=== PATIENT | female | born 1955 | race Caucasian/White ===

== ENCOUNTER → 2018-11-22 | Outpatient (CLI) | payer BC ==
--- NOTE | 2018-11-25 14:12 | RAD ---
DATE: 11/22/2018 EXAM: MAMMO XOCHITL SCREENING BILATERAL HISTORY: Annual screening COMPARISON: None. This is the baseline exam. This study was interpreted with the benefit of Computerized Aided Detection (CAD). Breast Density: HETERO The breast parenchyma is heterogenously dense, which could reduce sensitivity of mammography. Breast parenchyma level C. FINDINGS: Benign calcifications are present. No dominant mass or distortion. No suspicious calcifications. IMPRESSION: Benign findings. BI-RADS CATEGORY: 1 NEGATIVE RECOMMENDED FOLLOW-UP: 12M 12 MONTH FOLLOW-UP PQRS compliance statement: Patient information was entered into a reminder system with a target due date in one year for the next mammogram. Mammography is a sensitive method for finding small breast cancers, but it does not detect them all and is not a substitute for careful clinical examination. A negative mammogram does not negate a clinically suspicious finding and should not result in delay in biopsying a clinically suspicious abnormality. "Our facility is accredited by the [employer] Mammography [employer]."
== END | disposition home or self-care (01) ==
LOC: MAMMO 15:45
PROVIDERS: ATTEND Family Medicine
DX: Z12.31 Encounter for screening mammogram for malignant neoplasm of breast (principal); N64.89 Other specified disorders of breast
CPT/HCPCS: 77063; 77067

== ENCOUNTER 2020-05-20 20:28 | Emergency (ER) | payer BC ==
[~2020-05-20] VITALS: Ht 167.6 cm; Wt 79.0 kg
--- NOTE | 2020-05-20 20:35 | PHYS DOC ---
Past History Past Medical History: Anxiety, Arthritis, Diabetes, Hypertension Past Medical History ADD General Adult HPI: HPI: ".. I know I am a bad diabetic.. I was at [facility]..and my BP and sugars were too .. high.. did not want to send me home..."..." I have bad ADD..and forget to take my meds.." Patient is a 65 year old female who presents with above hx and complaints of hypertension,dizzy and elevated glucose levels. Patient normally follows with Dr. Em. Patient does have past apical history of diabetes, ADD, hy pertension and noncompliance. Patient sent from Dr. Em's clinic because of elevated glucose check and accelerated hypertension. Patient is accompanied by her daughter who is a physician speech language assistant. Patient was found to have elevated glucose levels and mild hypertension. Patient states the main reason her hypertension and glucose levels are elevated because she forgets to take her meds. Patient in past has been on ADD meds. Patient however states that she gets so distracted she even forgets to take her ADD meds. Patient denies any travel. Patient denies any severe ill contacts. Review of Systems: Review of Systems: Constitutional: Denies fever or chills Eyes: Denies change in visual acuity HENT: Denies nasal congestion or sore throat Respiratory: Denies cough or shortness of breath Cardiovascular: Denies chest pain or edema GI: Denies abdominal pain, , vomiting, bloody stools or diarrhea. History of nausea : Denies dysuria Musculoskeletal: Denies back pain or joint pain Integument: Denies rash Neurologic: Denies headache, focal weakness or sensory changes . History of dizziness Endocrine: History of polyuria or polydipsia Lymphatic: Denies swollen glands Psychiatric: History of depression or anxiety, ADD Family History: Family History: Noncontributory to presentation Current Medications: Current Meds: See nursing for home meds Allergies: Allergies: No known drug allergies Physical Exam: PE: Constitutional: , no acute distress, non-toxic appearance. [] HENT: Normocephalic, atraumatic, bilateral external ears normal, oropharynx dry, no oral exudates, nose normal. Decrease bone and air conduction Rt. ear. Tm s intact. Eyes: PERRLA, EOMI, conjunctiva normal, no discharge. [] Neck: Normal range of motion, no tenderness, supple, no stridor. [] Cardiovascular: Bradycardia heart rate regular rhythm, no murmur [] bedside monitor shows a sinus rhythm. Lungs & Thorax: Bilateral breath sounds apex on auscultation [] Abdomen: Bowel sounds normal, soft, no tenderness, no masses, no pulsatile masses. [] Skin: Warm, dry, no erythema, no rash. [] Back: No tenderness, no CVA tenderness. [] Extremities: No tenderness, no cyanosis, no clubbing, ROM intact, no edema. [] Neurologic: Alert and oriented X 3, moves all extremities on request. Does have distal sensory, no gross focal deficits noted. DTRs +2 patella and brachial. Sheet Layer equal. Distal sensation with 128 fork. Some decrease in vibratory sensation in the lower legs. Ambulatory without problems. Psychologic: Affect anxious, judgement normal, mood normal. [] EKG: EKG: My interpretation EKG shows a sinus bradycardia at 60 beats per months. Left mejía axis. No findings acute STEMI with contralateral changes. [] Radiology/Procedures: Radiology/Procedures: [address] [address] IMAGING REPORT [address] [place] [id number] IMAGING REPORT Signed PATIENT: KARIS PEPE ACCOUNT: [id number] : 1955 LOCATION: ER AGE: 65 SEX: F EXAM STATUS: REG ER ORD. PHYSICIAN: CARY BLAS MD REASON: dyspnea, dizzy PROCEDURE: PORTABLE CHEST 1V XR CHEST 1V Clinical Indication: Reason: dyspnea, dizzy / Spl. Instructions: / History: Comparison: None. Findings: The cardiomediastinal silhouette is normal. There is a small calcified granuloma in the right upper lung. Lungs are clear. There is no pneumothorax. No pleural effusion is appreciated. No acute bone abnormality. IMPRESSION: No acute cardiopulmonary process. Electronically signed by: Tacos Chavez MD (05/20/2020 9:28 PM) [facility] DICTATED AND SIGNED BY: TACOS CHAVEZ MD DATE: 05/20/202126 CC: CARY BLAS MD; BONITA EM MD ~MTH0 0 Heart Score: HEART Score for Chest Pain: HEART Score for Chest Pain Response (Comments) Value History Slighlty/Non-Suspicious 0 ECG Normal 0 Age >45 - < 65 1 Risk Factors 1 or 2 Risk Factors 1 Troponin < Normal Limit 0 Total 2 Risk Factors: Risk Factors: DM, Current or recent (<one month) smoker, HTN, HLP, family history of CAD, obesity. Risk Scores: Score 0 - 3: 2.5% MACE over next 6 weeks - Discharge Home Score 4 - 6: 20.3% MACE over next 6 weeks - Admit for Clinical Observation Score 7 - 10: 72.7% MACE over next 6 weeks - Early Invasive Strategies Course & Med Decision Making: Course & Med Decision Making Pertinent Labs and Imaging studies reviewed. (See chart for details) Patient given 1 L of normal saline and additional liter of lactated Ringer's. Patient was started on a insulin drip at 5 units/h. Patient's sugars gradually returned to 230s. Since patient was not acidotic and repeat Trop. was normal. BPs were acceptable. Will discharge patient home. Must develope a plan for compliance with meds and diet. Push fluids. Take meds as previously directed. Return if any concerns. Pt.ambulatory with out problems. Impression 1. Accelerated hypertension 2. Diabetes glucose 406 3. Noncompliance with diet and meds. 4. Dehydration 5. ADD [] Dragon Disclaimer: Dragon Disclaimer: This electronic medical record was generated, in whole or in part, using a voice recognition dictation system. Departure Departure: Referrals: BONITA EM MD (PCP) Dragon Disclaimer This chart was dictated in whole or in part using Voice Recognition software in a busy, high-work load, and often noisy Emergency Department environment. It may contain unintended and wholly unrecognized errors or omissions. Dragon Disclaimer This chart was dictated in whole or in part using Voice Recognition software in a busy, high-work load, and often noisy Emergency Department environment. It may contain unintended and wholly unrecognized errors or omissions. Dragon Disclaimer This chart was dictated in whole or in part using Voice Recognition software in a busy, high-work load, and often noisy Emergency Department environment. It may contain unintended and wholly unrecognized errors or omissions. CARY BLAS MD May 20, 2020 20:35
[2020-05-20] MEDS ORDERED: IV RINGERS SOLUTION,LACTATED 1,000 ML IV SCH (20:45)
[2020-05-20] MEDS ORDERED: IV NORMAL SALINE 1,000ML 1,000 ML IV ONE (20:45)
[2020-05-20] MEDS ORDERED: INSULIN REGULAR VIAL 100 UNIT in IV NORMAL SALINE 100ML 100 ML IV ONE ×2 (21:00→22:00)
--- NOTE | 2020-05-20 21:17 | EKG ---
[address] [address] Test Date: 2020-05-20 Test Time: 21:06:07 Pat Name: KARIS PEPE Department: Room: Gender: F Supervisor Pipeline: MARJORIE : 1955 Requested By: CARY BLAS Order Number: [id number] Reading MD: Measurements Intervals [place] Rate: 60 P: 43 NE: 206 QRS: -15 QRSD: 108 T: 76 QT: 410 QTc: 410 Interpretive Statements SINUS RHYTHM LEFTWARD AXIS S1,S2,S3 PATTERN T ABNORMALITY IN HIGH LATERAL LEADS ABNORMAL ECG RI6.02 No previous ECG available for comparison
--- NOTE | 2020-05-20 21:31 | RAD ---
XR CHEST 1V Clinical Indication: Reason: dyspnea, dizzy / Spl. Instructions: / History: Comparison: None. Findings: The cardiomediastinal silhouette is normal. There is a small calcified granuloma in the right upper l alejandro. Lungs are clear. There is no pneumothorax. No pleural effusion is appreciated. No acute bone abn ormality. IMPRESSION: No acute cardiopulmonary process. Electronically signed by: Tacos Chavez MD (05/20/2020 9:28 PM) [facility]
[2020-05-20 21:53] LABS: BASO # 0.1 x10^3/uL (0.0-0.2); BASO % 1 % (0-3); EOS # 0.3 x10^3/uL (0.0-0.7); EOS % 3 % (0-3); HEMATOCRIT 45.6 % (36.0-47.0); HEMOGLOBIN 15.2 g/dL (12.0-15.5); LYMPH # 1.6 x10^3/uL (1.0-4.8); LYMPH % 16 % (24-48); MEAN CORPUSCULAR HEMOGLOBIN 30 pg (25-35); MEAN CORPUSCULAR HGB CONC 33 g/dL (31-37); MEAN CORPUSCULAR VOLUME 91 fL (79-100); MONO # 0.6 x10^3/uL (0.0-1.1); MONO % 6 % (0-9); NEUT # 7.1 x10^3uL (1.8-7.7); NEUT % 74 % (31-73); PLATELET COUNT 238 x10^3/uL (140-400); RED BLOOD COUNT 5.01 x10^6/uL (3.50-5.40); RED CELL DISTRIBUTION WIDTH 12.9 % (11.5-14.5); WHITE BLOOD COUNT 9.5 x10^3/uL (4.0-11.0)
[2020-05-20 22:02] LABS: CALCIUM 9.2 mg/dL (8.5-10.1); CREATININE 0.9 mg/dL (0.6-1.0); GFR 63.2; POTASSIUM 4.2 mmol/L (3.5-5.1)
[2020-05-20 22:14] LABS: ALBUMIN 3.6 g/dL (3.4-5.0); DIRECT BILIRUBIN 0.2 mg/dL (0.0-0.2); MAGNESIUM 1.9 mg/dL (1.8-2.4); TOTAL BILIRUBIN 0.6 mg/dL (0.2-1.0); TOTAL PROTEIN 7.3 g/dL (6.4-8.2)
[2020-05-20 23:10] VITALS: BP 144/74
== END 2020-05-21 00:38 | disposition home or self-care (01) ==
LOC: ER 20:28
DX: I10 Essential (primary) hypertension (principal); E11.65 Type 2 diabetes mellitus with hyperglycemia; Z91.11 Patient's noncompliance with dietary regimen; E86.0 Dehydration; F98.8 Other specified behavioral and emotional disorders with onset usually occurring in childhood and adolescence; F41.9 Anxiety disorder, unspecified
CPT/HCPCS: 36415; 71045; 80048; 80076; 82550; 82947; 83690; 83735; 83880; 84443; 84484; 85025; 85379; 85610; 85730; 93005; 96361; 96365; 99285; J1815; J7030; J7120